=== PATIENT | male | born 1960 | race Caucasian/White ===

== ENCOUNTER 2021-04-15 17:45 | Emergency (ER) | payer OTHER ==
[~2021-04-15] VITALS: Ht 172.7 cm; Wt 60.3 kg
[2021-04-15 17:45] VITALS: BP_SYST 143
--- NOTE | 2021-04-15 17:45 | NUR ---
BROUGHT IN BY [facility], PLACED IN BED IN [place]ALLWAY. REPORT GIVEN TO MARCUS
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
--- NOTE | 2021-04-15 18:26 | NUR ---
ER Dr. Carrillo at bedside examining patient.
[2021-04-15] MEDS ORDERED: HYDROcodone/ACETAMIN 5-325 MG TAB (NORCO/ VICODIN) PO ONE (18:45)
[2021-04-15] MEDS ORDERED: DIPH-TET-PERTUS Vaccine 0.5 ML VIAL (ADACEL) I.M. ONE (18:45)
--- NOTE | 2021-04-15 19:14 | NUR ---
PO Lawrence given per md order.
--- NOTE | 2021-04-15 19:15 | NUR ---
IM tetnas given.
--- NOTE | 2021-04-15 19:15 | NUR ---
pt back from ct in stable condtion.
[2021-04-15] MEDS ORDERED: MORPHINE 4 MG INJ. 4 MG/ML VIAL IM ONE (20:00)
--- NOTE | 2021-04-15 20:05 | NUR ---
Pt taken to Radiology once again, in stable condition
--- NOTE | 2021-04-15 20:08 | NUR ---
Pt back from Radiology , well tolerated
--- NOTE | 2021-04-15 20:51 | NUR ---
Pt states " feeling a little better " Dr. Carrillo aware
[2021-04-15] MEDS ORDERED: TRAM50TA PO (21:22)
[2021-04-15 22:15] VITALS: BP_SYST 143
--- NOTE | 2021-04-15 22:15 | NUR ---
Patient given written and verbal discharge instructions and verbalizes understanding. ER MD discussed with patient the results and treatment provided. Patient in stable condition. ID arm band removed. Rx of Tramadol given. Patient educated on pain management and to follow up with PMD. Pain Scale 0/10 Opportunity for questions provided and answered. Medication side effect fact sheet provided.
== END 2021-04-15 22:15 | disposition home or self-care (01) ==
LOC: SED 17:45
DX: S52.501A Unspecified fracture of the lower end of right radius, initial encounter for closed fracture (principal); S80.11XA Contusion of right lower leg, initial encounter; S20.212A Contusion of left front wall of thorax, initial encounter; Z79.899 Other long term (current) drug therapy; V49.49XA Driver injured in collision with other motor vehicles in traffic accident, initial encounter; Y93.89 Activity, other specified; Y92.89 Other specified places as the place of occurrence of the external cause; Y99.8 Other external cause status
CPT/HCPCS: 29125; 70450; 71100; 72131; 73090; 73590; 76376; 90471; 90715; 96372; 99285; J2270